=== PATIENT | female | born 1950 | race Caucasian/White ===

== ENCOUNTER → 2021-03-09 | Outpatient (CLI) | payer OTHER, BC ==
[~2021-03-09] MED LIST: ASA81BEC PO; COLLAGEN HYDROLY1 GM PO; DIPHENHIST50 MG PO; GLUCOSAMINE &1 EACH PO; HAIR, SKIN & N1 EAC3 PO; HYDROCHLOROTH12.5 M2 PO; LIPITOR 10 MG10 M1 PO; NAPROSYN500 M1 PO; SUPER THERAVIT1 EACH PO
[2021-03-09 13:04] LABS: URINE BILIRUBIN NEGATIVE (Negative); URINE BLOOD NEGATIVE (Negative); URINE CLARITY CLEAR; URINE COLOR YELLOW; URINE GLUCOSE-RANDOM* NEGATIVE (Negative); URINE KETONES NEGATIVE (Negative); URINE LEUKOCYTES-REFLEX NEGATIVE (Negative); URINE NITRITE-REFLEX NEGATIVE (Negative); URINE PROTEIN (DIPSTICK) NEGATIVE (Negative); URINE UROBILINOGEN 0.2 E.U./dl (0.2-1.0)
[2021-03-09 13:29] LABS: INR 0.99; PROTIME 10.8 Seconds (10.5-12.1)
== END ==
LOC: LAB 10:47
PROVIDERS: Orthopaedic Surgery Sports Medicine; ATTEND Student in an Organized Health Care Education/Training Program
DX: Z01.812 Encounter for preprocedural laboratory examination (principal); Z20.822 Contact with and (suspected) exposure to COVID-19

== ENCOUNTER 2021-03-14 10:44 | Observation (INO) | payer OTHER, BC ==
[~2021-03-14] VITALS: Ht 165.1 cm; Wt 83.9 kg
[2021-03-14 11:52] VITALS: BP 145/78
[2021-03-14 17:11] VITALS: BP 115/59
[2021-03-14 17:29] VITALS: BP 104/63
[2021-03-14 19:36] VITALS: BP 116/57
--- NOTE | 2021-03-14 20:42 | NUR ---
Received pt from OR, under observation care. DC paper on the chart plan is for pt to leave tomorrow. Pt was sedated, at the bedside. Polar ice pack in place, no pain noted. Endorsed to the night nurse.
[2021-03-15 01:55] LABS: HEMATOCRIT 33.8 % (37.0-47.0); HEMOGLOBIN 11.3 gm/dL (12.0-15.0); MCH 31.4 pg (26.0-34.0); MCHC 33.5 g/dL (28.0-37.0); MCV 93.8 fL (80.0-100.0); RBC 3.6 mil/uL (4.20-5.00); RDW 13.5 % (10.5-14.5)
[2021-03-15 04:08] VITALS: BP 110/59
[2021-03-15 06:05] LABS: ABSOLUTE NEUTROPHILS 8.7 thou/uL (1.4-8.2); BASOPHILS 0.4 % (0.0-2.0); EOSINOPHILS 0.1 % (0.0-3.0); HEMATOCRIT 33.7 % (37.0-47.0); HEMOGLOBIN 11.2 gm/dL (12.0-15.0); LYMPHOCYTES 13.4 % (24.0-44.0); MCH 30.8 pg (26.0-34.0); MCHC 33.1 g/dL (28.0-37.0); MCV 92.9 fL (80.0-100.0); MONOCYTES 9.3 % (1.0-8.0); PLATELET COUNT 227 thou/uL (150-400); POLYS 76.8 % (36.0-66.0); RBC 3.63 mil/uL (4.20-5.00); RDW 13.7 % (10.5-14.5); WBC 11.4 thou/uL (4.0-11.0)
[2021-03-15 06:34] LABS: CALCIUM 8.8 mg/dL (8.5-10.1); POTASSIUM 4.8 mmol/L (3.5-5.1)
--- NOTE | 2021-03-15 08:21 | NUR ---
ASSUMED PT CARE AT 1900.PT C/O OF BEING HUNGRY,ATE SOME YOGURT AND WAS ABLE TO KEEP IT DOWN.PT WANTED TO TRY SOLID FOOD,SANDWICH,GIVE,BUT PT WAS NOT ABLE TO KEEP IT DOWN.L KNEE INCISION INTACT.REINA DRSG AND POLAR PACK IN PLACE.PT COMPLETED HER IV ABX.REPORT TO AM NURSE.
[2021-03-15 08:54] VITALS: BP 114/59
--- NOTE | 2021-03-15 10:26 | NUR ---
ASSUMED PT CARE THIS AM. PT IS ALERT & ORIENTED X4. PT HAS IV SITE ON R FA. PT IS UP WITH ASSIST X1 AND USES BEDSIDE COMMODE. PT USES CPAP AT NIGHT. PT RATED PAIN 7/10 ON L KNEE AND GIVEN PAIN MEDICATION SCHEDULED./ PT HAS SCD, TEDS, POLAR PACK, REINA DRESSING AND SCD. PT C/O OF NAUSEA BUT NO EMESIS NOTED AND GIVEN NAUSEA MEDICATION. PT WILL BE WORKING PHYSICAL THERAPY AGAIN THIS AFTERNOON. PT AT THE BEDSIDE. PT ON THE CHAIR. WILL CONTINUE TO MONITOR PT. FOLLOW POC.
--- NOTE | 2021-03-15 12:37 | NUR ---
PT ADMITTED RELATED TO LT KNEE UNICOMPARTMENTAL. CM REVIEWED CHART AND SPOKE WITH CARE TEAM. CM MET WITH PT AT BEDSIDE THIS DAY. PT APPEARED TO BE A&O X4. CM ROLE INTRODCUED. PT INDICATED SHE LIVES IN A HOUSE WITH HER SPOUSE WITH 4 STEPS TO ENTER AND ALL NEEDS ON 1 LEVEL. 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 PT INDICATED SHE IS ESTABLISHED WITH OP PT AT [facility] [place]. PT WAS COMPLAINING OF PAIN AND NAUSEA. CM FOLLOWING REGARDING DC PLANNING.
[2021-03-15 17:09] VITALS: BP 120/60
[2021-03-15 19:40] VITALS: BP 144/77
--- NOTE | 2021-03-15 22:55 | NUR ---
ASSUMED PT CARE AT 1900.PT OBSERVED LYING ON HER BED AT SHIFT CHANGE.FRANKI PAIN MED ADMINISTERED.PT SLEEPING WITH HER CPAP AT THIS TIME.DRSG DRY AND INTACT.PT REF HER MIRALAX AT HS.CALL LIGHT WITHIN REACH.
[2021-03-16 04:28] VITALS: BP 168/96
--- NOTE | 2021-03-16 07:08 | O ---
[address] [address] OPERATIVE REPORT Name: ALMA ALVES Room #: 463-P [facility]..#: [id number] Admission: 03/14/21 Attend Phys: Luis Chase MD Discharge: Date of : 52 Report #: [id number] THIS REPORT FOR: cc: FAM - No family physician/PCP FAM - No family physician/PCP Luis Chase MD ~ DOC #: [id number] Luis Chase MD DATE OF SERVICE: 03/14/2021 SERVICE: Orthopedics. FACILITY: [facility]. SURGEON: Luis Chase MD FAX MACHINE OPERATOR: Belinda Ramirez NP INDICATION FOR FAX MACHINE OPERATOR: Assistance with exposure, retraction, closure, and reconstruction. PREOPERATIVE DIAGNOSES: 1. Severe left knee medial compartment osteoarthritis. 2. Left knee pain. POSTOPERATIVE DIAGNOSES: 1. Severe left knee medial compartment osteoarthritis. 2. Left knee pain. PROCEDURES: 1. Left knee medial unicompartmental knee arthroplasty. 2. Robotic-assisted arthroplasty. COMPLICATIONS: None. DRAINS: None. SPECIMENS: None. ANESTHESIA: General with regional. ESTIMATED BLOOD LOSS: 30 mL FINDINGS: 1. [employer] II Oxinium size 6 femoral component with size 3 tibial component, 9 mm poly insert. [address] [address] OPERATIVE REPORT Name: ALMA ALVES Room #: 463-P [facility]#: [id number] Admission: 03/14/21 Attend Phys: Luis Chase MD Discharge: Date of : 52 Report #: [id number] 2. Well-balanced knee after the reconstruction. HISTORY: The patient is a 70-year-old female who has a history of persistent progressive left medial-sided knee pain secondary to medial compartment osteoarthritis. We tried rest, activity modifications, physical therapy, oral medicines, injections, and a medial radiological health specialist brace. Ultimately, she wished to move forward with definitive surgical treatment due to the pain affecting her activities of daily living and insufficient relief with the conservative measures. The risks, benefits, alternatives, and indications for surgery discussed with her in detail. Risks include, but not limited to, pain, bleeding, infection, injury to nerves or blood vessels, persistent pain despite surgical intervention, failure of the reconstruction, need for further surgery including conversion to total as well as complications related to anesthesia such as stroke, heart attack, pulmonary complications, thromboembolic disease, and . Despite these risks, she wished to proceed. She was indicated for unicompartmental due to medial compartment [id number] joint space narrowing with osteophytes. PROCEDURE IN DETAIL: After left lower extremity was correctly identified in the preoperative holding area as the operative extremity, the patient underwent regional nerve block. She was then taken to the operating room where general anesthesia was induced without complication. She was padded appropriately. Prophylactic antibiotics were administered at appropriate time. A tourniquet was applied to the left lower leg. Left lower extremity was then prepped and draped in standard sterile fashion. Timeout procedure performed. Esmarch was used, tourniquet inflated to 300 mmHg. Total tourniquet time was 60 minutes. A standard anterior approach was made with the medial parapatellar arthrotomy and the anterior horn and body of the medial meniscus was resected. The retropatellar tendon fat pad was resected as well. Then, a limited medial release was performed. The osteophytes were removed with a rongeur. The checkpoints and half pins were placed for the [employer] computer navigated robotic system and we proceed with templating. She was templated to a #6 femur, a #3 tibia and a 9 mm poly and appeared to be very well-balanced with this. This ultimately was the final implant. The Navio was used to perform the femoral milling as well as the peg holes and then prepped the tibia as well in the standard fashion with the robotic bur. After this was completed, the rasp was used to finish the preparation of the tibial surface and then we confirmed sizing for a #3 tibial component and then punched the fin, placed the trial in place and made the provisional drill holes. The femoral trial was then placed and the 9 mm poly trial was inserted as well. The knee was taken through a range of motion using the Navio for confirmation. She had good range of motion. She was corrected from 6 degrees of varus to 1-2 degrees of varus and had good flexion and had even ligament balancing throughout the arc of motion. We selected these as our final [address] [address] OPERATIVE REPORT Name: ALMA ALVES Room #: 463-P [facility] Ricky M.RAngie#: [id number] Admission: 03/14/21 Attend Phys: Luis Chase MD Discharge: Date of : 52 Report #: [id number] implants. We removed the trials, resected the residuals of the osteophytes, confirmed that there was no residual osteophytes or meniscal remnant. I then thoroughly irrigated the knee including the bone and cemented the final implants into position. The 9 mm poly trial was placed and the knee was placed into extension while the cement cured. Prior to placement of the implant, the posterior capsule was injected with the periarticular injection cocktail. Then, with the knee in extension while the cement was curing, the remaining portion of the cocktail was injected around the soft tissues of the knee. Tourniquet was let down. Hemostasis was achieved. Excess cement had been resected prior to allowing the cement to cure. After the cement had cured, I assessed the balancing again with the #9 trial poly. I was happy with the balance. So, we selected this as our final implant. The trial was removed. The knee was once more irrigated. We confirmed that no residual cement remnants were present and then the final poly was snapped into position and then the knee was taken through a range of motion, confirmed to be well stable. Knee was irrigated a final time and then the arthrotomy was closed with 0 Vicryl suture in [id number]-ihyro fashion over a gram of vancomycin powder. The skin was closed with 2-0 Vicryl and then all wounds closed with Monocryl followed by Dermabond. Sterile dressing was applied followed by a compression stocking and a PolarCare device. The patient was awakened from anesthesia and taken to recovery room in stable condition. There were no complications. All counts were recorded as correct. She will be weightbearing as tolerated with range of motion as tolerated with no restrictions. MD ISIAH Torres/GISELLE/PRANAV <ELECTRONICALLY SIGNED> By: Luis Chase MD 03/16/21 0708 [id number] Luis Chase MD /patricia
[2021-03-16 07:24] VITALS: BP 175/92
[2021-03-16 08:20] VITALS: BP 141/68
[2021-03-16 10:38] VITALS: BP 175/92
[2021-03-16 11:06] VITALS: BP 175/92
--- NOTE | 2021-03-16 12:35 | NUR ---
CARE TEAM INDICATED THAT PT IS MEDICALLY STABLE TO DISHCARGE HOME WITH OP PT THIS DAY. PT HAS SCRIPT FOR OP PT SERVICES UPON [place]. PT HAS FWW FOR HOME USE. PT'S SPOUSE TO PROVIDE TRASPORT HOME THIS DAY. NO OTHER CM INTERVENTIION INDICATED. CASE CLOSED.
--- NOTE | 2021-03-16 20:05 | NUR ---
Received awake on bed. Due medications given as prescribed, able to swallow meds w/o difficulty. On room air. Vital signs stable. On regular diet- tolerating well; no nausea, no vomiting and no abdominal pain noted. On MS, not on telemetry, no complains and signs of chest pain, crushing sensation and heaviness. Assisted in ADLs. Using CPAP at HS. Continent of bowel and bladder, able to bedside commode with standby assist, gait belt and walker; post op precautions observed. With SL at R FA. Falls bundle in place. Post op dressing C/D/I; REINA, ROSEMARIE hose, SCDs and polar pack in place. Pt seen and examined by Dr Cho this am for discharge once cleared by PT. Pt seen by Jimbo(PT), cleared patient. Discharge instructions, follow up schedule, post op care given and instructed; no further questions asked. Discharge forms signed. Pt confirmed that we have correct pharmacy on record. IV discontinued. No engine monitor. Pt fetched by her . Brought out of the unit with her personal belongings. Patient discharged.
== END 2021-03-16 13:17 | disposition home or self-care (01) ==
LOC: OR → PRE 12:40 → EDSTATUS 12:41 → TBA 16:45 → 4W 17:00
PROVIDERS: Nurse Practitioner; ADMIT Orthopaedic Surgery Sports Medicine; ATTEND Orthopaedic Surgery Sports Medicine
DX: M17.12 Unilateral primary osteoarthritis, left knee (principal); I49.5 Sick sinus syndrome; I10 Essential (primary) hypertension; R11.0 Nausea; G47.30 Sleep apnea, unspecified; E78.5 Hyperlipidemia, unspecified; Z88.5 Allergy status to narcotic agent; Z79.82 Long term (current) use of aspirin; Z79.899 Other long term (current) drug therapy
CPT/HCPCS: 50010; 50101; 50415; 50954; 51130; 51225; 51320; 52001; 52282; 53078; 53370; 54118; 56527; 56528; 57095; 57103; 57110; 57127; 57180; 62110; 62900; 64042; 70005